=== PATIENT | female | born 1950 | race Caucasian/White ===

== ENCOUNTER → 2018-02-18 | Outpatient (CLI) | payer OTHER, BC | LOC: FIMAGING 13:32 | PROVIDERS: ATTEND Internal Medicine Infectious Disease | DX: M79.662 Pain in left lower leg (principal); M79.89 Other specified soft tissue disorders ==

== ENCOUNTER → 2018-12-23 | Outpatient (CLI) | payer OTHER, BC | LOC: CIMAGING 10:23 | PROVIDERS: ATTEND Family Medicine | DX: J40 Bronchitis, not specified as acute or chronic (principal) | CPT/HCPCS: 71046-PO ==